=== PATIENT | female | born 1955 | race African-American/Black ===

== ENCOUNTER 2017-10-10 18:05 | Inpatient (IN) | payer BC ==
[2017-10-10] VITALS (11 sets, daily range): BP systolic 116–164; BP diastolic 87–119
[~2017-10-10] VITALS: Ht 165.1 cm; Wt 82.6 kg
--- NOTE | 2017-10-10 18:20 | NUR ---
EKG RT AT BEDSIDE FOR EKG REENA JC AT BEDSIDE TO START IV, DRAW BLOOD
--- NOTE | 2017-10-10 18:28 | NUR ---
DR BLOCK AT BEDSIDE FOR ASSESSMENT
[2017-10-10] MEDS ORDERED: LOPRESSER IVP STA (18:32)
[2017-10-10] MEDS ORDERED: LOPRESSER ONE (18:33)
--- NOTE | 2017-10-10 18:34 | PCM.EKG ---
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
--- NOTE | 2017-10-10 18:35 | ER.PDOC ---
General Chief Complaint: Dyspnea/Respdistress Stated Complaint: DIZZINESS, SHORTNESS OF BREATH Time seen by MD: 18:33 Source: patient Exam Limitations: no limitations History of Present Illness Initial Comments SOB Timing/Duration: 4-6 hours Activities at Onset: rest Prior Episodes/Possible Cause: no prior episodes Associated Symptoms: denies symptoms Allergies: Coded Allergies: No Known Allergies (Unverified , 10/10/17) Home Meds No Active Prescriptions or Reported Meds Past Medical History Medical History: no pertinent history Surgical History: no surgical history Social History Smoking: non-smoker Alcohol Use: none Drug Use: none Review of Systems Constitutional: no symptoms reported EENTM: no symptoms reported Respiratory: see HPI Cardiovascular: no symptoms reported Gastrointestinal: no symptoms reported Genitourinary: no symptoms reported All Other Systems: Reviewed and Negative Physical Exam General Appearance: Anxious HEENT: PERRL/EOMI, Normal ENT Inspection, TMs Normal, Pharynx Normal Neck: Non-Tender, Full Range of Motion, Supple, Normal Inspection Respiratory: chest non-tender, lungs clear, normal breath sounds, no respiratory distress, no accessory muscle use Cardiovascular: Normal Peripheral Pulses, Regular Rate, Rhythm, No Edema, No Gallop, No JVD, No Murmur, Tachycardia Gastrointestinal: Normal Bowel Sounds, No Organomegaly, No Pulsatile Mass, Non Tender, Soft Extremities: Normal Range of Motion, Non-Tender, Normal Inspection, No Pedal Edema, No Calf Tenderness, Normal Capillary Refill 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, No Motor/Sensory Deficits, Alert, Normal Mood/Affect, Oriented x 3 Skin: Normal Color, Warm/Dry Lymphatic: No Adenopathy Results/Orders Results/Orders Laboratory Tests Test 10/10/17 18:35 10/10/17 20:43 White Blood Count 11.0 10^3/uL (4.5-11.0) Red Blood Count 4.70 10^6/uL (4.00-5.20) Hemoglobin 13.7 g/dL (12.0-15.0) Hematocrit 40.7 % (36.0-46.0) Mean Corpuscular Volume 86.6 fL (78-100) Mean Corpuscular Hemoglobin 29.1 pg (26-34) Mean Corpuscular Hemoglobin Concent 33.7 g/dL (33-37) Red Cell Distribution Width 14.6 % (11.5-14.5) Platelet Count 127 10^3/uL (150-400) Mean Platelet Volume 11.2 fL (7.8-11.0) Neutrophils (%) (Auto) 74.0 % (41.0-85.0) Lymphocytes (%) (Auto) 17.2 % (24.0-44.0) Monocytes (%) (Auto) 6.5 % (5.0-12.0) Neutrophils # (Auto) 8.2 10^3/uL (1.8-7.7) Lymphocytes # (Auto) 1.9 10^3/uL (1.0-4.8) Monocytes # (Auto) 0.7 10^3/uL (0.3-0.8) Absolute Immature Granulocyte (auto 0.03 10^3 u/L (0-2) Eosinophils % 1.9 % (0.0-5.0) Basophils % 0.1 % (0.0-0.2) Basophils # 0.0 10^3/uL (0.0-0.1) Eosinophil Count 0.2 10^3/uL (0.0-0.2) Prothrombin Time 10.5 SEC (9.8-11.9) Prothrombin Time INR (Non-Therap) 1.1 Activated Partial Thromboplast Time 25.2 SEC (24.67-30.72) D-Dimer 21.40 mg/L (0.19-0.49) Sodium Level 144 mmol/L (132-145) Potassium Level 3.5 mmol/L (3.6-5.2) Chloride Level 107.0 mmol/L (96-109) Carbon Dioxide Level 25.1 mmol/L (20.0-32) Anion Gap 15.4 Blood Urea Nitrogen 13 mg/dL (7-18) Creatinine 0.82 mg/dL (0.59-1.40) Estimated GFR () 85.8 (>/=60) BUN/Creatinine Ratio 15.0 Glucose Level 120 mg/dL (70-110) Calcium Level 9.0 mg/dL (8.4-10.5) Total Bilirubin 1.2 mg/dL (0.2-1.0) Aspartate Amino Transf (AST/SGOT) 45 U/L (0-35) Alanine Aminotransferase (ALT/SGPT) 40 U/L (12-78) Alkaline Phosphatase 117 U/L (50-136) Total Creatine Kinase 83 U/L (26-192) Creatine Kinase MB 0.8 ng/mL (0.5-3.6) Troponin I 0.25 ng/mL (0.00-0.05) 0.74 ng/mL (0.00-0.05) Pro-B-Type Natriuretic Peptide 92 pg/mL (0-125) Total Protein 6.8 g/dL (6.4-8.2) Albumin 3.9 g/dL (3.4-5.0) Globulin 2.9 Percent Immature Gran (Cell Imm) 0.30 % (0.00-0.50) Administered Medications Medications (Trade) Dose Ordered Sig/Onofre Route PRN Reason Start Time Stop Time Status Last Admin Dose Admin Metoprolol Tartrate (Lopresser) 5 mg STAT STAT IVP 10/10/17 18:32 10/10/17 18:34 DC 10/10/17 18:42 Enoxaparin Sodium (Lovenox) 80 mg STAT STAT SQ 10/10/17 20:32 10/10/17 20:33 DC 10/10/17 20:37 Aspirin (Aspirin) 325 mg STAT STAT PO 10/10/17 21:24 10/10/17 21:26 DC 10/10/17 21:34 Lorazepam (Ativan) 1 mg STAT STAT IV 10/10/17 21:38 10/10/17 21:39 DC 10/10/17 21:44 EKG/XRAY/CT/US EKG Comments: Sinus tachycardia CT Comments: Bilateral PE Departure Time of Disposition: 21:46 Disposition: 09 ADMITTED INPATIENT Impression: Primary Impression: Pulmonary embolism Additional Impression: Non-ST elevation SD (NSTEMI) Condition: Stable Referrals: UNDEFINED,PHYSICIAN (PCP) PRIMARY CARE PROVIDER Scripts No Active Prescriptions or Reported Meds Comments Admitted to Dr. Frankel Duration or Time Spent with Pa: 90 mins Critical Care Note Total Time (mins): 90 Problem Qualifiers Primary Impression: Pulmonary embolism Pulmonary embolism type: other Chronicity: acute Acute cor pulmonale presence: without acute cor pulmonale Qualified Codes: I26.99 - Other pulmonary embolism without acute cor pulmonale MCKAYLA,NIRMALA Bateman MD Oct 10, 2017 18:35
[2017-10-10 18:40] LABS: BASOPHIL % 0.1 % (0.0-0.2); EOSINOPHIL # 0.2 10^3/uL (0.0-0.2); EOSINOPHIL % 1.9 % (0.0-5.0); HEMOGLOBIN 13.7 g/dL (12.0-15.0); LYMPHOCYTES # 1.9 10^3/uL (1.0-4.8); LYMPHOCYTES % 17.2 % (24.0-44.0); MEAN CELL HGB 29.1 pg (26-34); MEAN CELL HGB CONCENTRATION 33.7 g/dL (33-37); MEAN CORP VOLUME 86.6 fL (78-100); MEAN PLATELET VOLUME 11.2 fL (7.8-11.0); MONOCYTES # 0.7 10^3/uL (0.3-0.8); MONOCYTES % 6.5 % (5.0-12.0); NEUTROPHIL # 8.2 10^3/uL (1.8-7.7); RED CELL DISTRIBUTION WIDTH 14.6 % (11.5-14.5)
[2017-10-10 19:09] LABS: CARBON DIOXIDE 25.1 mmol/L (20.0-32)
--- NOTE | 2017-10-10 19:25 | NUR ---
D-DIMER DR BLOCK NOTIFIED OF PATIENT ELEVATED D-DIMER. NEW ORDERS RECEIVED FOR CTA CHEST WITH RUN OFFS.
--- NOTE | 2017-10-10 19:50 | DIREP ---
PROCEDURE:CHEST 1 VIEW COMPARISON:None. INDICATIONS:SOB FINDINGS: LUNGS/PLEURA:No significant pulmonary parenchymal abnormalities. No effusions. VASCULATURE:Normal. Unremarkable pulmonary vasculature. CARDIAC:Normal. No cardiac silhouette abnormality or cardiomegaly. MEDIASTINUM:Normal. No visible mass or adenopathy. BONES:Normal. No fracture or visible bony lesion. OTHER:Monitor leads are in place. CONCLUSION:Normal chest examination. Dictated by: Jonathan Garibay M.D. on 10/10/2017 at 07:49 PM
--- NOTE | 2017-10-10 20:10 | NUR ---
TO CT PATIENT TO CT VIA WHEELCHAIR WITH PETER REYNAGA
--- NOTE | 2017-10-10 20:17 | DIREP ---
PROCEDURE:CT PULMONARY ANGIOGRAM AND CT VENOGRAM TECHNIQUE:Following the intravenous administration of contrast material, axial cuts were obtained through the chest. Multiplanar / 3-D reconstructions are provided. Satisfactory pulmonary arterial contrast opacification was achieved. Delayed images through the pelvis and upper legs were acquired for a CT venogram. The images were viewed at lung and soft tissue settings. COMPARISON:None. INDICATIONS:SOB FINDINGS: PULMONARY ARTERIES:There are multiple small emboli seen in all segments of the lungs. VEINS OF PELVIS/LEGS:Patent. LUNGS:No significant pulmonary parenchymal abnormalities. CARDIAC:Normal size heart and normal pulmonary vascularity. THYROID:Normal. THORACIC AORTA:Normal. MEDIASTINUM:Normal. PLEURA:Normal. BONES:Normal. PELVIS:Normal. OTHER:There are few low-density lesions seen scattered throughout the liver that probably represent cysts. CONCLUSION: 1. Moderate thrombus burden with findings of bilateral pulmonary emboli. No evidence of pulmonary infarction. 2. No evidence of DVT of the pelvis/thighs is identified. 3. No airspace abnormality is identified. 4. Multiple small low-density lesions are seen throughout the liver that probably represent cysts. Dictated by: Joesph Martines MD on 10/10/2017 at 08:12 PM
--- NOTE | 2017-10-10 20:20 | NUR ---
BACK FROM CT PATIENT BACK FROM CT, AT BEDSIDE. NO NEEDS VOICED BY PATIENT OR SPOUSE
[2017-10-10] MEDS ORDERED: LOVENOX SQ ONE (20:32)
[2017-10-10] MEDS ORDERED: LOVENOX SQ STA (20:32)
[2017-10-10] MEDS ORDERED: ASPIRIN ONE (21:22)
--- NOTE | 2017-10-10 21:23 | NUR ---
TROPONIN INCREASED FROM 0.[address] BLOCK ON THE PHONE WITH DR TURNER TO DISCUSS TRANSFERRRING PATIENT TO [facility].
[2017-10-10] MEDS ORDERED: ASPIRIN PO STA (21:24)
--- NOTE | 2017-10-10 21:25 | NUR ---
[facility] EDP ON PHONE WITH [facility], AUTO ACCEPT BY [facility] KIRAN DISPATCH, DR JCAOBS
--- NOTE | 2017-10-10 21:28 | NUR ---
[facility] ACCEPTED FLIGHT
--- NOTE | 2017-10-10 21:30 | NUR ---
DR JOHNNY TURNER CALLED, STATING HE WANTS TO CHECK WITH DR LEHMAN BEFORE WE TRANSFER
--- NOTE | 2017-10-10 21:33 | NUR ---
[facility] WILL ACCEPT PATIENT IN ICU HERE
[2017-10-10] MEDS ORDERED: ATIVAN IV STA (21:38)
[2017-10-10] MEDS ORDERED: ATIVAN ONE (21:39)
--- NOTE | 2017-10-10 21:49 | PRM.ACF1 ---
Date and Time Date and Time Time: 21:48 Admission Criteria Forms PULMONARY EMBOLISM Clinical Indications for Admission to Inpatient Care (viejas/check or initial the applicable condition/criteria) Admission is indicated for 1 or more of the following(1)(2)(3)(4)(5)(6)(7) [ ]I. Hypoxemia [x ]II. Vital sign abnormality (8) indicated by ALL of the following: [ ]a) Vital sign findings not as expected for chronic patient condition or baseline (eg, intentionally low, blood pressure in heart failure) [ ]b) Vital sign abnormality as indicated by 1 or more of the following [ ]l) Tachycardia [ ]ll) Hypotension [ ]lll) Orthostatic vital sign changes [ ]III. History of cancer [ ]IV. History of chronic cardiopulmonary disease (eg. CHF, coronary artery disease, COPD, cor pulmonale) [ ]V. Cardiac arrhythmias of intermediate concern [ ]. Right ventricular dysfunction (eg, by echocardiogram) [ ]VII. Positive cardiac biomarker (eg, troponin T or I > 0.1 ng/mL (mcg/L), highly sensitive troponin I assay greater than 0.014 ng/mL (mcg/L), BNP or NT proBNP > assay threshold)(8 )(10)(11) [ ]VIII. Need for IV narcotics (eg, to treat dyspnea) 1 or more of following: [ ]a) Bleeding before anticoagulation [ ]b) Recent surgery (eg, within 3 months) that increases risk of catastrophic bleeding (eg, spinal surgery, intracranial surgery, cardiovascular surgery) [ ]c) Recent GI bleeding (eg, within 3 months) or known increased risk of GI bleed (eg,esophageal varices, current ulcer) [ ]d) Recent (eg, within 3 months) ischemic stroke [ ]e) History of intracranial bleeding (eg, hemorrhagic stroke) [ ]f) History of active bleeding when anticoagulated [ ]g) Active substance abuse [ ]h) Other risk factor thought to place patient at high risk such that ability to rapidly reverse reversal agent) [ ]X. Documented extensive thrombosis (eg, clot in vena cava or above iliofemoral bifurcation) [ ]Xl. Thrombolysis (eg, catheter-directed) or pharmacomechanical thrombectomy needed[A][B](8) [ ]XIl. Vena cava filter placement needed (eg, unable to anticoagulate)[C](8) [ ]Xlll. with delivery planned (eg, 37 or more weeks' gestation)(14 ) [ ]XlV. Limb-threatening thrombosis (eg, phlegmasia cerula dolens) [ ]XV. Embolism while on anti-coagulation [ ]XVl. Contraindication to outpatient use of medication with rapid anticoagulation effect as indicated by ALL of the following: [ ] a) Contraindication to use of xvu-bebuksvgj-perlmx heparin[E][F ] indicated by 1 or more of the following(16): [ ] i) Documented current or history of heparin-induced thrombocytopenia(15) [ ] ii) Severe thrombocytopenia (eg, platelet count less than 50 ,000/mm3 (50 x109/L)) [ ] iii) Allergy to heparin, hps-sbttnicja-gdclcq heparin, or product component [ ] iv) Renal failure (creatinine clearance less than 30 mL/min/ 1.73m2 (0.50 mL/sec/1.73m2) or on dialysis) [ ] v) Need for neuraxial anesthesia or spinal puncture anticipated [ ] vi) Inability to manage self-injection (eg. By patient, caregiver, or visiting nurse) [ ] b) Contraindication to use of fondaparinux indicated by 1 or more of the following: [ ] i) Documented current or history of heparin-induced thrombocytopenia (15) [ ] ii) Severe thrombocytopenia (eg, platelet count less than 50 ,000/mm3 (50 x109/L)) [ ] iii) Allergy to fondaparinux, related drugs, or product components [ ] iv) Renal failure (creatinine clearance less than 30 mL/min/ 1.73m2 (0.50 mL/sec/1.73m2) or on dialysis) [ ] v) [ ] vi) Liver disease with coagulopathy (eg, elevated INR due to liver disease) [ ] vii) Mechanical heart valve [ ] viii) Need for neuraxial anesthesia or spinal puncture anticipated [ ] xi) Inability to manage self-injection (eg, by patient, caregiver, or visiting nurse) [ ] c) Contraindication to use of an oral direct thrombin inhibitor (eg, dabigatran) or an oral coagulation factor Xa inhibitor (eg, rivaroxaban, apixaban)[E][F] indicated by 1 or more of the following(17)(18): [ ] i) Severe thrombocytopenia (eg, platelet count less than 50, 000/mm3 (50 x109/L)) [ ] ii) Allergy to medication or product components x109/L)) [ ] iii) Renal failure (creatinine clearance less than 30 mL/min /1.73m2 (0.50 mL/sec/1.73m2) or on dialysis) [ ] iv) [ ] v) Liver disease with coagulopathy (eg, elevated INR due to liver disease) [ ] vi) Mechanical heart valve [ ] vii) Need for neuraxial anesthesia or spinal puncture anticipated [ ]XVll. Inpatient admission required rather than observation care (Also use Pulmonary Embolism: Observation Care guideline as appropriate) because of ANY ONE of the following: [ ] a) Significant autoimmune (thrombocytopenia) or coagulopathic reaction occurs in response to anticoagulation [ ] b) Respiratory symptoms (eg, tachypnea, dyspnea) that are severe or persistent [ ] c) Other condition, treatment, or monitoring requiring inpatient admission The original [employer] content created by [employer] has been revised. The portions of the content which have been revised are identified through the use of italic text, and [facility] has neither reviewed nor approved the modified material. All other unmodified content is copyright [employer]. Please see references footnoted in the original [employer] edition 2014 NIRMALA BLOCK MD Oct 10, 2017 21:49
--- NOTE | 2017-10-10 22:00 | NUR ---
PATIENT ARRIVAL PATIENT ARRIVED VIA STRETCHER FROM ER. BEDSIDE SBAR REPORT RECEIVED. INTRODUCED SELF, ASSUMED CARE. PATIENT PLACED ON TITLE SUPERVISOR, CONT PULSE OX, NIBP AND O2 @ 2L VIA NC. DENIES PAIN OR NEEDS AT THIS TIME. ASSESSMENT INITIATED.
--- NOTE | 2017-10-10 22:00 | NUR ---
REPORT GIVEN AT BEDSIDE TO REENA HAMMER ICU
--- NOTE | 2017-10-10 23:00 | NUR ---
DR. JOHNYN TURNER AT BEDSIDE TO ASSESS PATIENT AND DISCUSS PLAN OF CARE.
[2017-10-11] VITALS (65 sets, daily range): BP systolic 95–158; BP diastolic 44–119
--- NOTE | 2017-10-11 02:34 | HPH ---
ADMIT DATE: 10/10/2017 The patient is being admitted as an inpatient to ICU. PRIMARY CARE PHYSICIAN: Chito Crabtree. ADMITTING DIAGNOSES: Bilateral pulmonary emboli with shortness of breath and tachycardia. CHIEF COMPLAINT: Shortness of breath. HISTORY OF PRESENT ILLNESS: The patient is a very jennyfer and pleasant 61-year-old -[place] female who was traveling along with her by car from [place] to [place]. They started off with [place], leaving [place] and drove for 5 hours to [place] and stopped there and then from there, they were driving to [place] and at 11 hours, she started to have increasing shortness of breath and tiredness. She did not feel well. She went to sleep and got up and still was short of breath. So they were driving to [place] and they stopped at our ER where she checked herself into the ER and was found to be tachycardic and had an elevated D-dimer and subsequently had a CT scan that showed bilateral extensive pulmonary emboli. She is being admitted to our ICU currently. She denies any chest pain right now. She feels okay. She denies any abdominal pain. She denies any recent trauma. She states that she had a colonoscopy 4-5 months ago that was perfectly normal and she had no issues with breathing during that time. PAST MEDICAL HISTORY: None. PAST SURGICAL HISTORY: Again, she had a colonoscopy the end of last year that was normal. She has had no other surgeries or operations. MEDICATIONS: She was on was none. ALLERGIES: NO KNOWN DRUG ALLERGIES. SOCIAL HISTORY: She does not smoke. No illicit drugs, no alcohol reported. FAMILY HISTORY: Extensively asked. She denies any autoimmune diseases in the family. She denies any cancer. No miscarriages in the family as well. PHYSICAL EXAMINATION: VITAL SIGNS: Initially temperature is 98, pulse rate was 127 when she came into the ER. She has sinus tachycardia, respiratory rate was 24, blood pressure was 164/119, it did drop to 127/95 and O2 sats were 93% on room air. My physical exam is as follows: GENERAL: She is in no acute distress to me, awake and alert, very pleasant lady oriented x 4. HEENT: Oropharynx is clear. NECK: Supple, no JVD, no bruits. HEART: S1, S2 audible. No murmurs. LUNGS: Clear bilaterally. She was not tachypneic. ABDOMEN: Bowel sounds are present. Soft abdomen, no rebound, no guarding, no masses. EXTREMITIES: No pitting edema, no swelling. No rashes, no petechia, no purpura. LABORATORY DATA: Labs were obtained. She had a CBC that was normal. Chemistry panel looked okay. Troponin was initially elevated to 0.25 and it did jump up to 0.74. Total bilirubin was 1.2, glucose of 120, BUN of 13, creatinine 0.82. D-dimer is 21.4. IMAGING STUDIES: She had a chest x-ray that was normal, but a CTA of the chest did show moderate thrombus burden with small emboli in all segments of the lungs. No saddle emboli noted. ASSESSMENT: We have this female with extensive bilateral pulmonary emboli. Lovenox has been started on her and I will continue this. I will get an echo on her and have Cardiology see her in the morning and repeat some labs in the morning and see how she will do. Brittani Frankel MD DR: VAHID/mango JOB# [id number]
--- NOTE | 2017-10-11 05:30 | NUR ---
ASSISTED PATIENT TO BSC. VOIDED 700 ML OF CLEAR YELLOW URINE. STEADY GAIT. DENIES PAIN OR SOB. ASSISTED BACK TO BED. NO FURTHER NEEDS VOICED.
--- NOTE | 2017-10-11 06:41 | NUR ---
SBAR BEDSIDE REPORT GIVEN TO ONCOMING SHIFT. NO NEEDS VOICED. RELINQUISHED CARE.
--- NOTE | 2017-10-11 06:45 | NUR ---
RECEIVED REPORT AND PATIENT CARE ASSUMED. PATIENT AWAKE, NO DISTRESS NOTED. PATIENT DENIES ANY PAIN OR SOB. CALL LIGHT WITHIN EASY REACH.
--- NOTE | 2017-10-11 07:35 | NUR ---
ACTIVITY LEVEL A/ASSESSMENT COMPLETED CHARTED. LUNGS CTAB. O2 AT 2L/MIN VIA NASAL CANULA. 02 SAT 97%. RR 18. NO EDEMA NOTED. PATIENT ACTIVITY LEVEL A, HOWEVER EXCLUDED D/T PE DIAGNOSIS. PATIENT SAT UP IN BED, ORAL CARE DONE BY PATIENT. PATIENT INSTRUCTED SHE WILL BE NPO UNTIL DR. LEHMAN COMES AND EVALUATES. PATIENT VOICED UNDERSTANDING. NO OTHER NEEDS VOICED. CALL LIGHT WITHIN EASY REACH. PATIENT LEFT SITTING UP IN BED.
--- NOTE | 2017-10-11 07:40 | NUR ---
ECHO VALENTINA RT AT BEDSIDE GETTING ECHO.
--- NOTE | 2017-10-11 08:10 | NUR ---
TROPONIN 0.[address] LEHMAN. NO NEW ORDERS AT THIS TIME. TO COME SEE PATIENT THIS AM.
[2017-10-11] MEDS: LOVENOX SQ SCH ×2 (09:26→22:10)
[2017-10-11] MEDS: PROTONIX PO SCH (09:26)
[2017-10-11] MEDS: KLOR-CON 10 PO SCH (09:27)
[2017-10-11 10:03] LABS: ABG PCO2 33.4 mmHg (35.0-45.0); ABG PH 7.485 (7.350-7.450); BE(B) 1.8 mmol/L (-2.0-2.0); HCO3act 24.6 mmol/L (22.0-26.0); pO2 65.5 mmHg (75.0-100.0)
--- NOTE | 2017-10-11 10:10 | NUR ---
ABG RESULTS CALLED TO DR. LEHMAN. NO NEW ORDERS AT THIS TIME.
--- NOTE | 2017-10-11 10:25 | NUR ---
DR. LEHMAN AT BEDSIDE ASSESSING PATIENT AND DISCUSSING POC WITH PATIENT AND SPOUSE. NEW ORDERS GIVEN, SEE EMR.
--- NOTE | 2017-10-11 10:30 | NUR ---
O2 PATIENT DROPPED TO 89% ON RA. DR. LEHMAN AT BEDSIDE. VERBAL ORDER TO KEEP PATIENT ON 02 AT 2L/MIN.
--- NOTE | 2017-10-11 10:39 | PCM.EKG ---
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
[2017-10-11] MEDS ORDERED: COZAAR PO STA (10:51)
[2017-10-11] MEDS ORDERED: NS 1000ML/KCL 20MEQ 1,000 ML IV ONE (11:00)
[2017-10-11] MEDS ORDERED: ATIVAN PO STA (11:01)
[2017-10-11] MEDS ORDERED: RESTORIL PO PRN (11:30)
[2017-10-11] MEDS ORDERED: NS 1000ML/KCL 20MEQ 1,000 ML IV SCH (11:30)
--- NOTE | 2017-10-11 12:15 | NUR ---
DR. TURNER AT BEDSIDE TALKING TO PATIENT REGARDING POC.
--- NOTE | 2017-10-11 12:19 | PRM.PN ---
Subjective Subjective Date: Oct 11, 2017 Time: 12:10 Subjective Pt reports feeling ok; no pains Patient History: Patient reports no known family medical history. VTE VTE Risk Total Score: >5 VTE Risk Score VTE Risk: Score 0-1 = Low Risk (Aggressive mobilization; early ambulation; no VTE prophylaxis required) Score 2: Moderate Risk (Intermittent/Pneumatic Compression Device OR Lovenox/Heparin/Coumadin) Score 3-4: High Risk (Intermittent/Pneumatic Compression Device AND Lovenox/Heparin/Coumadin) Score > or =5: Highest Risk (Intermittent/Pneumatic Compression Device AND Lovenox/Heparin/Coumadin) Antico:Hep/LMWH/Coum/Xarelto: Yes Mechanical device ordered: No Review of Systems Constitutional: No: Fever, Weakness Eyes: No: Pain, Vision change, Conjunctivae inflammation ENT: No: Ear pain, Ear discharge, Nose pain, Nose discharge Respiratory: No: Cough, Dry, Shortness of breath Cardiovascular: No: Chest Pain, Palpitations, Orthopnea, Paroxysmal Noc. Dyspnea Gastrointestinal: No: Nausea, Vomiting, Abdominal Pain, Diarrhea Genitourinary: No Dysuria, No Frequency, No Incontinence, No Hematuria Musculoskeletal: No: neck pain, shoulder pain, arm pain Skin: No: Lesions, Jaundice, Bruising Neurological: No: Confusion, Seizures Allergies: Coded Allergies: No Known Allergies (Unverified , 10/10/17) No Active Prescriptions or Reported Meds Objective Vitals and I/O Vital Sign - Last 24 Hours 10/10/17 10/10/17 10/10/17 10/10/17 18:20 18:21 18:42 19:13 Temp 98.0 Pulse 127 127 128 112 Resp 24 24 18 B/P (MAP) 164/119 (134) 167/116 142/104 (117) Pulse Ox 93 93 93 O2 Delivery Room Air Room Air Room Air 10/10/17 10/10/17 10/10/17 10/10/17 20:20 21:29 22:15 22:15 Temp 98.0 98.0 98.1 Pulse 119 125 114 Resp 18 18 16 B/P (MAP) 148/114 (125) 154/116 (129) Pulse Ox 96 93 92 O2 Delivery Room Air Room Air Nasal Cannula O2 Flow Rate 2.00 10/10/17 10/10/17 10/10/17 10/10/17 22:16 22:30 22:45 23:00 Pulse 112 106 108 113 Resp 22 17 22 26 B/P (MAP) 130/96 (107) 133/97 (109) 127/95 (106) Pulse Ox 91 95 92 96 10/10/17 10/10/17 10/10/17 10/10/17 23:02 23:15 23:30 23:45 Pulse 114 106 114 115 Resp 26 14 25 20 B/P (MAP) 156/95 (115) 125/89 (101) 123/89 (100) 116/87 (97) Pulse Ox 96 96 95 96 10/11/17 10/11/17 10/11/17 10/11/17 00:00 00:00 00:01 00:15 Pulse 116 113 111 Resp 36 22 23 B/P (MAP) 130/83 (99) 120/70 (87) Pulse Ox 99 93 91 O2 Delivery Nasal Cannula O2 Flow Rate 2.00 10/11/17 10/11/17 10/11/17 10/11/17 00:30 00:45 01:00 01:15 Pulse 120 107 111 108 Resp 50 22 20 22 B/P (MAP) 153/73 (99) 116/80 (92) 101/72 (82) 95/78 (84) Pulse Ox 92 92 90 91 10/11/17 10/11/17 10/11/17 10/11/17 01:30 01:31 01:45 02:00 Pulse 111 106 104 110 Resp 24 20 19 17 B/P (MAP) 124/78 (93) 108/73 (85) Pulse Ox 92 95 95 96 10/11/17 10/11/17 10/11/17 10/11/17 02:01 02:15 02:30 02:45 Pulse 106 104 103 103 Resp 17 18 21 18 B/P (MAP) 129/65 (86) 117/79 (92) 137/92 (107) 123/85 (98) Pulse Ox 97 93 93 94 10/11/17 10/11/17 10/11/17 10/11/17 03:00 03:15 03:30 03:45 Pulse 106 102 108 98 Resp 18 18 21 17 B/P (MAP) 130/88 (102) 116/86 (96) 127/80 (96) 119/79 (92) Pulse Ox 94 94 96 95 10/11/17 10/11/17 10/11/17 10/11/17 04:00 04:00 04:15 04:30 Pulse 105 106 105 Resp 21 19 19 B/P (MAP) 139/77 (97) 124/82 (96) 129/91 (104) Pulse Ox 96 96 94 O2 Delivery Nasal Cannula O2 Flow Rate 2.00 10/11/17 10/11/17 10/11/17 10/11/17 04:45 05:00 05:15 05:30 Pulse 103 108 99 99 Resp 20 18 20 16 B/P (MAP) 137/93 (108) 135/94 (108) 137/93 (108) 138/99 (112) Pulse Ox 95 97 96 95 10/11/17 10/11/17 10/11/17 10/11/17 05:45 06:00 06:15 06:30 Pulse 101 102 100 105 Resp 18 18 16 18 B/P (MAP) 117/87 (97) 139/102 (114) 142/102 (115) 154/90 (111) Pulse Ox 96 96 97 97 10/11/17 10/11/17 10/11/17 10/11/17 06:45 07:00 07:15 07:30 Temp 98.7 Pulse 100 100 100 99 Resp 17 15 16 19 B/P (MAP) 134/97 (109) 132/90 (104) 149/96 (113) 152/95 (114) Pulse Ox 96 95 97 97 O2 Delivery Nasal Canula O2 Flow Rate 2.00 10/11/17 10/11/17 10/11/17 10/11/17 07:35 07:47 08:01 11:25 Pulse 103 100 Resp 12 18 B/P (MAP) 138/89 (105) 154/88 (110) 135/94 Pulse Ox 97 99 O2 Delivery Nasal Cannula O2 Flow Rate 2.00 Intake and Output 10/10/17 10/10/17 10/11/17 15:00 23:00 07:00 Intake Total 120 ml Output Total 700 ml Balance -580 ml General: Alert, Oriented X3, Cooperative, No acute distress HEENT: Atraumatic, PERRLA, Mucous membr. moist/pink Neck: Supple, No JVD, No LAD Lungs: Clear to auscultation, Normal air movement Heart: Regular rate, Normal S1, Normal S2 Abdomen: Normal bowel sounds, Soft Extremities: No clubbing, No cyanosis Skin: No rashes, No breakdown Neuro: Normal speech Psych/Mental Status: Mental status NL, Mood NL Medication Reconciliation No Active Prescriptions or Reported Meds Course Blood Pressure Systolic: 154 Blood Pressure Diastolic: 88 Blood Pressure Mean: 110 Assessment/Plan Assessment/Plan Assessment/Plan 61 yo female with PE, SOB, tachy, elevated BP - cardiology consulted - cont lovenox - wait U/S - follow clinically Problems: Patient History: Patient reports no known family medical history. PERLA TURNER MD Oct 11, 2017 12:19
--- NOTE | 2017-10-11 13:05 | NUR ---
US US TECH AT BEDSIDE GETTING VENOUS DOPPLER TO RIGHT LOWER EXT.
--- NOTE | 2017-10-11 13:34 | DIREP ---
PROCEDURE:US DUPLEX EXTREM VEINS UNILATER/LIMITED-RT COMPARISON:None. INDICATIONS:right leg 37cm, PE TECHNIQUE:The right lower extremity was evaluated utilizing escoto scale images with segmental compression, color Doppler, and spectral Doppler with respiratory variation and augmentation. FINDINGS: Common femoral vein:Patent Superficial femoral vein:Patent Popliteal vein:Patent Peroneal vein:Patent Posterior tibial vein:Patent Waveforms are within normal limits. CONCLUSION:No right lower extremity DVT. Dictated by: HPRA Physician on 10/11/2017 at 01:25 PM ld
--- NOTE | 2017-10-11 14:25 | NUR ---
BSC PATIENT ASSISTED TO BSC. PATIENT URINATED 650CC OF CLEAR YELLOW URINE. PATIENT O2 RANGED BETWEEN 88-91% WITH AMBULATING ON ROOM AIR. 02 EXTENSION ADDED TO NASAL CANULA, AND O2 AT 2L/MIN. PATIENT ASSISTED BACK INTO BED. PATIENT CONTINUES TO DENY IN PAIN OR INCREASED SOB AT THIS TIME. HOB SLIGHTLY ELEVATED TO PATIENT COMFORT. PATIENT LEFT TALKING ON CELL PHONE. CALL LIGHT WITHIN EASY REACH.
[2017-10-11] MEDS ORDERED: TOPROL XL PO ONE (14:28)
[2017-10-11] MEDS: TOPROL XL PO SCH (14:31)
--- NOTE | 2017-10-11 14:31 | NUR ---
METOPROLOL 25 GIVEN BP REMAINED WNL. HR CONT 100-110BPM. METOPROLOL GIVEN AT THIS TIME. SEE EMAR.
--- NOTE | 2017-10-11 14:55 | NUR ---
VENOUS DOPPLER NEGATIVE RESULT CALLED TO DR. LEHMAN AND DR. TURNER. NO NEW ORDERS AT THIS TIME.
--- NOTE | 2017-10-11 20:30 | NUR ---
PATIENT TAKEN TO SURGICAL UNIT VIA WC TO SHOWER. NO SOB, WEAKNESS OR DIFFICULTY. PATIENT WAS ABLE TO AMBULATE FROM WC TO BATHROOM WITH STEADY GAIT.
--- NOTE | 2017-10-11 22:44 | ECHO ---
DATE OF SERVICE: 10/11/2017 PRIMARY PHYSICIAN: Dr. Frankel and Dr. Hyatt. INDICATIONS: A 61-year-old female with pulmonary emboli, cor pulmonale. FINDINGS: Mitral valve shows normal motion, normal mitral valve opening. No evidence of any diastolic dysfunction and aorta normal, normal aortic valve opening, mild gradient across the aorta, but the valve opening is 2.64 cm and mild tricuspid regurgitation. Right ventricular systolic pressure of 31 mm and right ventricle is enlarged to almost 3.99 cm and right atrium is enlarged to 4.42 cm in width and in length it is 4.19 and mild left atrial enlargement in 4-chamber longitudinal dimension to 4.79. Left ventricle is normal in size around 4.28 cm end diastolic dimension, 2.97 cm end-systolic dimension, basal septal thickening, overall good contractility. I would say 50% ejection fraction and IVC is normal. Hence picture consistent with right ventricular enlargement with maybe mild right ventricular hypokinesis and cor pulmonale findings with mild biatrial enlargement and early left ventricular hypertrophy, probably underlying hypertension is a consideration with intact LV systolic function and no pericardial effusion is documented. Laxmichand MD Edmar DR: ERLINDA/mango JOB# [id number]
--- NOTE | 2017-10-11 23:30 | CNH ---
DATE OF CONSULTATION: 10/11/2017 PRIMARY PHYSICIAN: Dr. Frankel. CHIEF COMPLAINT: Dizziness, near syncopal episode and extreme shortness of breath. HISTORY OF PRESENT ILLNESS: The patient is a 61-year-old black female who was traveling from [place], going to [place], [place] and she stopped about 20 miles outside [place] [address] because of significant near syncopal episode and marked shortness of breath and came into the Emergency Room, was noted to have elevated D-dimer and was tachycardic, tachypneic and a CTA of the lungs showed bilateral moderate pulmonary emboli, but no thrombus was noted in the legs, but because of significant pulmonary emboli, she was admitted for further evaluation and management. Denied any chest pain. EKG was showing sinus tachycardia. Her initial troponin was elevated, which came up higher on followup troponin measurement and proBNP was normal. It got elevated to over 1000 later on, but her EKG stayed normal with sinus tachycardia. She has no prior history of any hypertension, diabetes or any chronic medical ailments. She has had right knee swelling and was told that she has right knee arthritis, but the swelling is in the calf region. There is a 3 cm difference between the right and the left calf. Prior history of DVT is not elicited from her, but probably she has underlying right leg DVT, which may have predisposed her with a long travel to pulmonary emboli. ALLERGIES: NONE KNOWN. MEDICATIONS: She is on no home medications. PAST MEDICAL HISTORY: Essentially noncontributory with no history of any chronic medical ailments and had colonoscopy and her routine physicals on a regular basis. 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 SOCIAL HISTORY: Nonsmoker, no ethanol abuse. FAMILY HISTORY: Denies any history of any autoimmune disease and no history of any underlying chronic medical ailments in the family. PHYSICAL EXAMINATION: GENERAL: When I saw her, she is a pleasant 61-year-old lady. VITAL SIGNS: 165 cm and 82 kilograms and a BMI 30.2 and her pulse was about 105 to 110, blood pressure when I saw her was 157/110, respirations were 16 and saturation was 89% on room air, but on oxygen 94-96%. HEENT: Unremarkable. NECK: No JVD, no carotid bruits. CHEST: Thin chest wall. LUNGS: Clear. HEART: Sounds were normal and tachycardia noted and no murmurs were audible. ABDOMEN: Soft, nontender, no organomegaly. Bowel sounds present. EXTREMITIES: Right leg, especially right calf enlargement about 3 cm 37 cm on the right and 34 cm on the left. Distal pulses fairly well felt. Right knee swelling was noted. No ankle edema. NEUROLOGIC: No focal neuro deficit is documented. IMAGING STUDIES: EKG, sinus tachycardia. No axis shift documented. LABORATORY DATA: Showed 11,000 white count and 13.7 hemoglobin and chemistry showed 3.5 potassium with 120 glucose and 1.2 bilirubin and SGOT was 45 and troponin 0.25, subsequently, 0.74 and 0.80 and a proBNP 92, went up to 1502. D-dimer elevated at 21.4 and blood gas 7.48 pH with pCO2 of 33, pO2 65 on room air. So, no significant resting hypoxemia noted. Her chest x-ray was unremarkable and moderate pulmonary emboli bilaterally documented on CTA of the lung. IMPRESSION: Bilateral pulmonary emboli, sinus tachycardia, troponin elevation a prognostic factor in outcomes of pulmonary emboli. No evidence of any coronary ischemic substrate based on EKG or symptoms and no underlying risk factors also. PLAN: At this time, continue Lovenox 1 mg/kg subQ b.i.d. I talked extensively about Xarelto 15 mg twice a day for 21 days, then 20 mg daily for next 6 months and she has got reservations related to the bleeding issues and reassurance was given. She has probably underlying hypertension, hypertensive heart disease. We will start her on losartan 25 mg once a day, metoprolol 25 mg once a day and Protonix 40 mg once a day and echocardiogram will be reviewed and clinical followup and further management will depend on the clinical course. Thank you very much for this consultation. Laxmichand MD BASILIO Hyatt: ERLINDA/mango JOB# [id number]
[2017-10-12] VITALS (15 sets, daily range): BP systolic 128–169; BP diastolic 65–115
--- NOTE | 2017-10-12 07:00 | NUR ---
RECEIVED REPORT AND PATIENT CARE ASSUMED.
--- NOTE | 2017-10-12 07:30 | NUR ---
ASSESSMENT PATIENT AWAKE AND ALERT. NO DISTRESS NOTED. ASSESSMENT COMPLETED CHARTED.LUNG CTAB. O2 SAT 97% ON 2L/MIN VIA NASAL CANULA PATIENT UP TO CHAIR AT BEDSIDE. ORAL CARE DONE BY PATIENT. BREAKFAST TRAY GIVEN. CALL LIGHT WITHIN EASY REACH.
[2017-10-12] MEDS: PROTONIX PO SCH (08:57)
[2017-10-12] MEDS: KLOR-CON 10 PO SCH (08:58)
[2017-10-12] MEDS ORDERED: COZAAR PO SCH (09:00)
[2017-10-12] MEDS: TOPROL XL PO SCH (09:02)
[2017-10-12] MEDS: LOVENOX SQ SCH (09:03)
--- NOTE | 2017-10-12 10:38 | NUR ---
O2 OFF DR. TURNER CALLED, PAITENT STATUS GIVEN. VERBAL ORDER TO MONITOR O2 SAT ON ROOM AIR. O2 OFF AT THIS TIME.
--- NOTE | 2017-10-12 11:45 | NUR ---
DR. LEHMAN AT BEDSIDE ASSESSING PATIENT AND DISCUSSING PLAN OF CARE. TEACHING GIVEN REGARDING XARELTO VS. COUMADIN. PATIENT AGREED TO PLAN OF CARE AND TREATMENT PLAN.
--- NOTE | 2017-10-12 12:45 | NUR ---
IV ACCESS DRESSING CHANGED. IV ACCESS GOOD BLOOD RETURN AND EASY FLUSH. SITE SALINE LOCKED.
[2017-10-12 13:22] LABS: CALCIUM 8.4 mg/dL (8.4-10.5); CARBON DIOXIDE 25.8 mmol/L (20.0-32)
--- NOTE | 2017-10-12 13:50 | NUR ---
TRANSFER TO MED/SURG PATIENT TRANSFERRED TO MED/SURG ROOM 312 VIA WC ON ROOM AIR. NO DISTRESS NOTED. PATIENT ORIENTED TO ROOM, BED, AND CALL LIGHT. REPORT GIVEN TO Dana DAVENPORT RN.
--- NOTE | 2017-10-12 13:52 | PRM.PN ---
Subjective Subjective Date: Oct 12, 2017 Time: 13:50 Subjective breathing ok; no acute issues Patient History: Patient reports no known family medical history. VTE VTE Risk Total Score: >5 VTE Risk Score VTE Risk: Score 0-1 = Low Risk (Aggressive mobilization; early ambulation; no VTE prophylaxis required) Score 2: Moderate Risk (Intermittent/Pneumatic Compression Device OR Lovenox/Heparin/Coumadin) Score 3-4: High Risk (Intermittent/Pneumatic Compression Device AND Lovenox/Heparin/Coumadin) Score > or =5: Highest Risk (Intermittent/Pneumatic Compression Device AND Lovenox/Heparin/Coumadin) Antico:Hep/LMWH/Coum/Xarelto: Yes Mechanical device ordered: No Review of Systems Constitutional: No: Fever, Chills, Weakness Eyes: No: Pain, Vision change, Conjunctivae inflammation ENT: No: Ear pain, Ear discharge, Nose pain, Nose discharge Respiratory: No: Cough, Dry, Shortness of breath Cardiovascular: No: Chest Pain, Palpitations, Orthopnea, Paroxysmal Noc. Dyspnea Gastrointestinal: No: Nausea, Vomiting, Abdominal Pain, Diarrhea Genitourinary: No Dysuria, No Frequency, No Incontinence, No Hematuria Musculoskeletal: No: neck pain, shoulder pain, arm pain Skin: No: Lesions, Jaundice, Bruising Neurological: No: Confusion, Seizures Allergies: Coded Allergies: No Known Allergies (Unverified , 10/10/17) No Active Prescriptions or Reported Meds Objective Vitals and I/O Vital Sign - Last 24 Hours 10/11/17 10/11/17 10/11/17 10/11/17 14:00 14:15 14:30 15:00 Pulse 100 105 104 98 Resp 17 10 13 13 B/P (MAP) 122/81 (95) 108/75 (86) 109/73 (85) 126/116 (119) Pulse Ox 97 95 97 98 10/11/17 10/11/17 10/11/17 10/11/17 15:30 15:30 16:00 16:30 Temp 98.5 Pulse 107 98 93 Resp 15 19 19 B/P (MAP) 141/86 (104) 130/77 (94) 112/76 (88) Pulse Ox 95 99 96 O2 Delivery Nasal Cannula O2 Flow Rate 2.00 10/11/17 10/11/17 10/11/17 10/11/17 17:00 17:32 18:12 18:30 Pulse 94 99 87 Resp 15 15 18 16 B/P (MAP) 129/90 (103) 158/119 (132) Pulse Ox 99 97 99 95 10/11/17 10/11/17 10/11/17 10/11/17 18:45 19:00 19:00 19:01 Temp 98.3 Pulse 85 85 86 Resp 16 7 16 B/P (MAP) 141/81 (101) Pulse Ox 99 99 99 O2 Delivery Nasal Cannula O2 Flow Rate 2.00 10/11/17 10/11/17 10/11/17 10/11/17 19:15 19:30 19:45 20:00 Pulse 82 84 83 83 Resp 15 15 20 12 B/P (MAP) 121/84 (96) Pulse Ox 100 95 98 10/11/17 10/11/17 10/11/17 10/11/17 20:01 20:07 20:15 20:30 Pulse 85 86 86 95 Resp 21 18 17 18 B/P (MAP) 116/44 (68) 125/85 (98) Pulse Ox 99 98 97 99 O2 Delivery Nasal Cannula O2 Flow Rate 2.00 10/11/17 10/11/17 10/11/17 10/11/17 21:10 21:30 22:00 23:00 Pulse 84 84 84 87 Resp 14 14 14 14 B/P (MAP) 136/86 (103) 131/94 (106) 145/88 (107) 149/89 (109) Pulse Ox 95 94 93 94 10/12/17 10/12/17 10/12/17 10/12/17 00:00 00:00 01:02 02:00 Pulse 86 82 78 Resp 16 18 18 B/P (MAP) 128/81 (97) 132/65 (87) 154/115 (128) Pulse Ox 88 94 89 O2 Delivery Nasal Cannula O2 Flow Rate 2.00 10/12/17 10/12/17 10/12/17 10/12/17 03:00 04:00 04:00 05:00 Pulse 81 79 72 Resp 18 17 13 B/P (MAP) 135/87 (103) 145/80 (101) Pulse Ox 96 96 97 O2 Delivery Nasal Cannula O2 Flow Rate 2.00 10/12/17 10/12/17 10/12/17 10/12/17 05:01 06:00 06:02 06:15 Pulse 74 75 83 77 Resp 16 16 15 17 B/P (MAP) 133/76 (95) 135/88 (104) Pulse Ox 97 97 97 95 10/12/17 10/12/17 10/12/17 10/12/17 06:30 06:45 07:00 07:01 Temp 98.8 Pulse 76 75 85 81 Resp 16 16 16 15 B/P (MAP) 135/86 (102) Pulse Ox 95 96 99 98 10/12/17 10/12/17 10/12/17 10/12/17 07:15 07:30 07:30 07:45 Pulse 78 84 83 Resp 12 18 18 Pulse Ox 97 97 99 O2 Delivery Nasal Cannula O2 Flow Rate 2.00 10/12/17 10/12/17 10/12/17 10/12/17 08:00 08:15 08:30 08:30 Pulse 91 89 100 83 Resp 15 18 18 18 B/P (MAP) 137/81 (99) Pulse Ox 97 97 99 97 O2 Delivery Nasal Cannula O2 Flow Rate 2.00 FiO2 28 10/12/17 10/12/17 10/12/17 10/12/17 08:45 08:57 09:00 09:15 Pulse 84 82 83 Resp 20 16 15 B/P (MAP) 137/81 134/83 (100) Pulse Ox 98 97 98 10/12/17 09:30 Pulse 82 Resp 15 Pulse Ox 98 Intake and Output 10/11/17 10/11/17 10/12/17 15:00 23:00 07:00 Intake Total 1205 ml 1171 ml Output Total 650 ml 800 ml Balance 555 ml 371 ml General: Alert, Oriented X3, Cooperative, No acute distress HEENT: Atraumatic, PERRLA, Mucous membr. moist/pink Neck: Supple, No JVD, No LAD Lungs: Clear to auscultation, Normal air movement Heart: Regular rate, Normal S1, Normal S2 Abdomen: Normal bowel sounds, Soft Extremities: No clubbing, No cyanosis Skin: No breakdown Neuro: Normal speech Psych/Mental Status: Mental status NL, Mood NL Medication Reconciliation No Active Prescriptions or Reported Meds Course Blood Pressure Systolic: 134 Blood Pressure Diastolic: 83 Blood Pressure Mean: 100 Assessment/Plan Assessment/Plan Assessment/Plan 61 yo female with acute PE, SOB, tachy, elevated BP - to floor today - start xarelto - D/C lovenox - wean O2 and ambulate Problems: Patient History: Patient reports no known family medical history. PERLA TURNER MD Oct 12, 2017 13:52
[2017-10-12] MEDS: XARELTO PO SCH (21:23)
--- NOTE | 2017-10-12 21:42 | PNH ---
DATE: 10/12/2017 SUBJECTIVE: A 61-year-old old. The patient is feeling much better. OBJECTIVE: VITAL SIGNS: Stable. Heart rate is about 87, blood pressure 160/90, increased losartan to 50 mg once a day. NECK: No JVD. LUNGS: Clear. HEART: Sounds normal. LABORATORY DATA: Her chemistries have shown that her potassium was 3.5, we will do comprehensive today and we will stop Lovenox. Start Xarelto 15 mg twice a day. No DVT on ultrasound of the right leg, swelling noted, may have been a knee issue. Bernard cyst is a consideration. We will transfer to the floor. Transfer order is placed. IMPRESSION: Bilateral pulmonary emboli. Antithrombin III, protein C, S and homocysteine level sent out; definite documented from pulmonary emboli on CTA. PLAN: Continue same therapy. We will go to the floor. Ryanhand MD Edmar DR: ERLINDA/mango JOB# [id number]
[2017-10-13] VITALS: BP 124/81
[2017-10-13 04:12] VITALS: BP 144/79
--- NOTE | 2017-10-13 06:30 | NUR ---
REPORT RECEIVED REPORT, ASSUMED CARE FOR PATIENT AT THIS TIME.
--- NOTE | 2017-10-13 06:35 | NUR ---
report to danelle singer
[2017-10-13 07:00] VITALS: BP 139/89
[2017-10-13] MEDS ORDERED: COZAAR PO SCH (09:00)
[2017-10-13] MEDS: PROTONIX PO SCH (09:31)
[2017-10-13] MEDS: KLOR-CON 10 PO SCH (09:31)
[2017-10-13] MEDS: TOPROL XL PO SCH (09:32)
[2017-10-13] MEDS: XARELTO PO SCH (09:32)
[2017-10-13 13:11] VITALS: BP 144/79
[2017-10-13] MEDS ORDERED: LOSA50TA2 PO (13:19)
[2017-10-13] MEDS ORDERED: RIVA20TA PO (13:19)
[2017-10-13] MEDS ORDERED: METO25TA2 PO (13:19)
--- NOTE | 2017-10-13 14:13 | NUR ---
DISCHARGE PATIENT BEING DISCHARGE AT THIS TIME IN STABLE CONDITION. PATIENT PLANS TO DRIVE WITH HER AND DAUGHTER TO [place] UPON DISCHARGE. EDUCATED PATIENT ABOUT THE IMPORTANCE OF PULLING OVER TO AMBULATE FREQUENTLY ON HER TRAVELS. PATIENT VOICED UNDERSTANDING. PRESCRIPTIONS GIVEN. DENIES ADDITIONAL NEEDS AT THIS TIME. RELINQUISHED CARE FOR PATIENT AT THIS TIME.
--- NOTE | 2017-10-13 21:39 | DSH ---
DATE OF DISCHARGE: 10/13/2017 ADMITTING DIAGNOSES: Bilateral pulmonary emboli with shortness of breath, tachycardia and elevated blood pressure. DISCHARGE DIAGNOSES: Pulmonary emboli with tachycardia, resolving and elevated blood pressures. HOSPITAL COURSE: The patient is a very jennyfer and pleasant 61-year-old female who was traveling through from [place] to [place] to visit her daughter. She became acutely short of breath during her drive here and to the point where she felt something was wrong and she was brought to our ER. In our ER, her D-dimer was markedly elevated to above 20. CTA of the chest did confirm multiple pulmonary emboli in all segments of her lungs bilaterally. She had no saddle embolism. ABG was okay. She was placed on oxygen and placed in and our ICU. I started her on Lovenox at DVT doses and did an echo and consulted our energy manager, Dr. Hyatt. Echo did confirm right heart strain with elevated right heart pressures and dilation, but EF was preserved. She was started on a low dose beta lanny and ARB with losartan for her elevated blood pressures and she was weaned off the oxygen within 48 hours. She is feeling a lot better at this point. She is not short of breath. She is walking around. She is tolerating p.o. intake. Her vital signs were stable. Heart rates when she came were up to 130 now. Now, they are actually below 90. Blood pressure is improved as well too on losartan. So, currently she is stable for discharge. We are switching over to Xarelto. I gave her a 30-day supply as a starter pack for her and we are continuing her metoprolol and her losartan for now. She is to resume her home diet and activity level. I have asked her to follow up with her PCP in [place] in 1-2 weeks. We are sending her home with some medical records for her to show her doctor and again continue these medications for her PE and her elevated blood pressure and heart rate when she came in. Brittani Frankel MD DR: VAHID/mango JOB# [id number]
--- NOTE | 2017-10-14 18:55 | DSH ---
DATE OF DISCHARGE: 10/13/2017 FINAL DIAGNOSES: Bilateral pulmonary emboli, right leg swelling, no DVT documented, hypertension, hypertensive heart disease, mild left ventricular hypertrophy with septal thickening on echocardiogram, intact LV systolic function. Please refer to my consultation. HOSPITAL COURSE: The patient is a 61-year-old female who was traveling from [place] to [place] and she got very short of breath 20 miles out of [place] and was brought in and a CTA positive bilateral pulmonary emboli, right knee swollen, DVT not seen in the right leg and has right knee swelling, was initiated on Lovenox and initially, she was tachycardic, which improved and she was not very hypoxic, but the tachycardia improved. Blood pressure was high and she was dismissed home on Xarelto 15 mg twice a day by Dr. Frankel along with losartan 25 mg once a day and metoprolol 25 mg daily and losartan 50 mg once a day, Xarelto 15 mg twice a day for 21 days and then 20 mg daily for another 6 months and she was supposed to see her PCP in the interim period. Laxmichand MD Edmar DR: ERLINDA/mango JOB# [id number]
== END 2017-10-13 14:10 | disposition home or self-care (01) | DRG 176 ==
LOC: ER 18:26 → ICU 21:39 → MS 10-12 13:50
PROVIDERS: ADMIT Pediatrics; ATTEND Specialist
DX: I26.99 Other pulmonary embolism without acute cor pulmonale (principal); I11.9 Hypertensive heart disease without heart failure; M17.11 Unilateral primary osteoarthritis, right knee; R00.0 Tachycardia, unspecified; Z86.718 Personal history of other venous thrombosis and embolism
CPT/HCPCS: 36415; 36600; 71045; 71275; 73701; 73706; 80053; 82550; 82553; 82803; 83090; 83880; 84484; 85025; 85379; 85610; 85730; 87040; 93005; 93307; 96372; 96374; 96375; 99291; 99292; J1650; J2060; J3480; J3490; 93971; Q9965